=== PATIENT | female | born 1935 | race Caucasian/White ===

== ENCOUNTER → 2018-02-14 14:15 | Outpatient (CLI) | payer MEDICARE, OTHER ==
[2018-02-14 15:29] LABS: ALBUMIN 3.8 g/dL (3.4-5.0); ANION GAP 14.5 mmol/L (8-16); BILIRUBIN - TOTAL 0.2 mg/dL (0.2-1.3); CALCIUM 9.1 mg/dL (8.5-10.1); CARBON DIOXIDE 24.8 mmol/L (21.0-32.0); CREATININE - SERUM 1.5 mg/dL (0.6-1.3); POTASSIUM - SERUM 4.3 mmol/L (3.5-5.1)
== END | disposition home or self-care (01) ==
LOC: D.LABREF 14:15
PROVIDERS: Emergency Medicine
DX: I10 Essential (primary) hypertension (principal)